=== PATIENT | female | born 1995 | race Caucasian/White ===

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

== ENCOUNTER 2017-05-07 16:25 | Outpatient (CLI) | payer BC, MEDICAID ==
--- NOTE | 2017-05-07 17:15 | Non Stress Test Report ---
Non Stress Test Datetime Report Generated by CPN: 05/07/2017 17:15 DEMOGRAPHIC Test Number: 1 EGA NST: 35.1 INDICATION Indication for Study: Ordered by Provider VITAL SIGNS Temperature - NST: 98.8 MONITORING Monitor Explained: Monitor Explained; Test Explained; Patient Verbalized Understanding Time on Monitor: 05/07/2017 16:37 Time off Monitor: 05/07/2017 17:12 NST Duration: 35 NST INTERVENTIONS NST Interventions: None Physician Notified NST: Lyles, CNM BABY A: [id number] BABY A Movement : Present Contraction Frequency : irregular FHR Baseline : 145 Accelerations : 15X15 Decelerations : None Variability : Moderate 6-25bpm NST Review: Meets Criteria for Reactive NST NST Review and Verified By : Shankar Barraza RN NST Results: Reactive NST REPORT Report Trigger: Send Report
[2017-05-07 17:31] LABS: ABSOLUTE EOSINOPHILS # (AUTO) 0.1 10^3/uL (0.0-0.6); ABSOLUTE LYMPHOCYTES (AUTO) 1.4 10^3/uL (0.5-4.7); ABSOLUTE MONOCYTES (AUTO) 1.2 10^3/uL (0.1-1.4); ABSOLUTE NEUT (AUTO) 10.4 10^3/uL (1.7-8.2); BASOPHILS % (AUTO) 0.3 % (0-2); EOSINOPHILS % (AUTO) 0.6 % (0-6); HEMATOCRIT 38.8 % (36.0-47.0); HEMOGLOBIN 12.9 g/dL (12.0-15.5); HGB HCT DIFFERENCE -0.1; LYMPHOCYTES % (AUTO) 10.3 % (13-45); MEAN CORPUSCULAR HEMOGLOBIN 27.3 pg (27.0-33.4); MEAN CORPUSCULAR HGB CONC 33.4 g/dL (32.0-36.0); MEAN CORPUSCULAR VOLUME 82 fl (80-97); MONOCYTES % (AUTO) 9.3 % (3-13); RED BLOOD COUNT 4.74 10^6/uL (3.72-5.28); RED CELL DISTRIBUTION WIDTH 13.5 % (11.5-14.0); SEGMENTED NEUTROPHILS % (AUTO) 79.5 % (42-78); WHITE BLOOD COUNT 13.1 10^3/uL (4.0-10.5)
[2017-05-07 17:45] LABS: AMORPHOUS SEDIMENT,URINE TRACE /HPF; APPEARANCE,URINE CLOUDY; BILIRUBIN,URINE NEGATIVE (NEGATIVE); GLUCOSE, URINE >=500 mg/dL (NEGATIVE); KETONES,URINE NEGATIVE (NEGATIVE); LEUKOCYTE ESTERASE,URINE MODERATE (NEGATIVE); NITRITE,URINE NEGATIVE (NEGATIVE); PROTEIN,URINE 100 mg/dL (NEGATIVE); URINE SPECIFIC GRAVITY 1.016; UROBILINOGEN,URINE NEGATIVE mg/dL (<2.0)
[2017-05-07 17:50] LABS: ALANINE AMINOTRANSFERASE 36 U/L (9-52); ALBUMIN 2.9 g/dL (3.5-5.0); ALKALINE PHOSPHATASE 175 U/L (38-126); ANION GAP 9 (5-19); ASPARTATE AMINO TRANSFERASE 18 U/L (14-36); BILIRUBIN,DIRECT 0.2 mg/dL (0.0-0.4); BILIRUBIN,TOTAL 0.3 mg/dL (0.2-1.3); BLOOD UREA NITROGEN 13 mg/dL (7-20); CALCIUM 9.1 mg/dL (8.4-10.2); CARBON DIOXIDE 22 mmol/L (22-30); CHLORIDE 106 mmol/L (98-107); GLUCOSE 103 mg/dL (75-110); LDH 430 U/L (313-618); POTASSIUM 4.3 mmol/L (3.6-5.0); TOTAL PROTEIN 5.8 g/dL (6.3-8.2); URIC ACID 4.5 mg/dL (2.5-6.2)
[2017-05-07 18:02] LABS: URINE BARBITURATES SCREEN NEGATIVE; URINE METHADONE SCREEN NEGATIVE; URINE OPIATES LOW NEGATIVE; URINE PHENCYCLIDINE SCREEN NEGATIVE
[2017-05-07 18:08] LABS: URINE CREATININE 134.4 mg/dL (16-327); URINE PROTEIN 78.2 mg/dL (<12)
== END 2017-05-07 18:09 | disposition home or self-care (01) ==
LOC: LC 16:25
PROVIDERS: ATTEND Obstetrics & Gynecology
PROC: 4A1HXCZ Monitoring of Products of Conception, Cardiac Rate, External Approach (ICD-10-PCS; principal; 2017-05-07)
DX: O47.03 False labor before 37 completed weeks of gestation, third trimester (principal); Z3A.35 35 weeks gestation of pregnancy
CPT/HCPCS: 36415; 59025; 80053; 80307; 81001; 82570; 83615; 84156; 84550; 85025

== ENCOUNTER 2017-05-10 15:35 | Outpatient (CLI) | payer BC, MEDICAID ==
--- NOTE | 2017-05-10 16:51 | L&D Progress Notes ---
PROGRESS NOTES Datetime Report Generated by CPN: 05/10/2017 16:51 PROGRESS NOTE Vital Signs : Reviewed Comment: 22 yo sent from office for elevated bps pt denies any current symptoms history of hsv, gdm on glyburide 5mg po AM and 2.5 mg po qhs EDC 06/10/17 abdomen nontender modified bedrest cat 1 nst vss d/c home follow up in clinic on sunday fkc and precautions reviewed FETUS A FHR - Baseline: 130 Monitoring: External US Variability: Moderate 6-25bpm Accelerations: 15X15 Decelerations: None : 35.4 SIGNATURE SIGNATURE: [id number];[id number] SIGNATURE: [id number] Assignment: Jaspreet Carvalho MD Signature: with User ID: [email or web address] : with User ID: [email or web address]
--- NOTE | 2017-05-10 17:03 | Non Stress Test Report ---
Non Stress Test Datetime Report Generated by CPN: 05/10/2017 17:03 DEMOGRAPHIC EGA NST: 35.4 INDICATION Indication for Study: Chronic Hypertension Indication for Study (NST) Other: hypertension and non reactive NST in office today MONITORING Monitor Explained: Monitor Explained; Test Explained; Patient Verbalized Understanding Time on Monitor: 05/10/2017 15:35 Time off Monitor: 05/10/2017 16:37 NST Duration: 62 NST INTERVENTIONS NST Interventions: Reposition Patient NST Interventions Other: position changed Physician Notified NST: Ailsia Emmel CNM BABY A: [id number] BABY A Movement : Present Contraction Frequency : 4-5 FHR Baseline : 135 Accelerations : 15X15 Decelerations : None Variability : Moderate 6-25bpm NST Review: Meets Criteria for Reactive NST NST Review and Verified By : Agnes Hawley RN NST Results: Reactive NST REPORT Report Trigger: Send Report
== END 2017-05-10 16:44 | disposition home or self-care (01) ==
LOC: LC 15:35
PROVIDERS: ATTEND Obstetrics & Gynecology Gynecology
PROC: 4A1HXCZ Monitoring of Products of Conception, Cardiac Rate, External Approach (ICD-10-PCS; principal; 2017-05-10)
DX: O10.913 Unspecified pre-existing hypertension complicating pregnancy, third trimester (principal); Z3A.35 35 weeks gestation of pregnancy
CPT/HCPCS: 59025

== ENCOUNTER 2017-05-14 16:25 | Outpatient (CLI) | payer BC, MEDICAID ==
[2017-05-14 17:02] LABS: ABSOLUTE BASOPHILS # (AUTO) 0.1 10^3/uL (0.0-0.2); ABSOLUTE LYMPHOCYTES (AUTO) 2.3 10^3/uL (0.5-4.7); ABSOLUTE MONOCYTES (AUTO) 1.3 10^3/uL (0.1-1.4); ABSOLUTE NEUT (AUTO) 10.3 10^3/uL (1.7-8.2); EOSINOPHILS % (AUTO) 0.3 % (0-6); HEMATOCRIT 38.8 % (36.0-47.0); HEMOGLOBIN 13.3 g/dL (12.0-15.5); HGB HCT DIFFERENCE 1.1; LYMPHOCYTES % (AUTO) 16.2 % (13-45); MEAN CORPUSCULAR HEMOGLOBIN 27.8 pg (27.0-33.4); MEAN CORPUSCULAR HGB CONC 34.4 g/dL (32.0-36.0); MEAN CORPUSCULAR VOLUME 81 fl (80-97); MONOCYTES % (AUTO) 9.3 % (3-13); RED BLOOD COUNT 4.79 10^6/uL (3.72-5.28); RED CELL DISTRIBUTION WIDTH 14.1 % (11.5-14.0); SEGMENTED NEUTROPHILS % (AUTO) 73.2 % (42-78); WHITE BLOOD COUNT 14.1 10^3/uL (4.0-10.5)
[2017-05-14 17:11] LABS: APPEARANCE,URINE CLOUDY; BILIRUBIN,URINE NEGATIVE (NEGATIVE); GLUCOSE, URINE >=500 mg/dL (NEGATIVE); KETONES,URINE NEGATIVE (NEGATIVE); LEUKOCYTE ESTERASE,URINE TRACE (NEGATIVE); NITRITE,URINE NEGATIVE (NEGATIVE); PROTEIN,URINE >=500 mg/dL (NEGATIVE); URINE SPECIFIC GRAVITY 1.035; UROBILINOGEN,URINE NEGATIVE mg/dL (<2.0)
[2017-05-14 17:23] LABS: ALANINE AMINOTRANSFERASE 35 U/L (9-52); ALBUMIN 3.1 g/dL (3.5-5.0); ALKALINE PHOSPHATASE 186 U/L (38-126); ANION GAP 10 (5-19); ASPARTATE AMINO TRANSFERASE 24 U/L (14-36); BILIRUBIN,DIRECT 0.2 mg/dL (0.0-0.4); BILIRUBIN,TOTAL 0.2 mg/dL (0.2-1.3); BLOOD UREA NITROGEN 14 mg/dL (7-20); CALCIUM 9.2 mg/dL (8.4-10.2); CARBON DIOXIDE 20 mmol/L (22-30); CHLORIDE 109 mmol/L (98-107); CREATININE RESULT 0.84 mg/dL (0.52-1.25); GLUCOSE 53 mg/dL (75-110); LDH 495 U/L (313-618); POTASSIUM 4.1 mmol/L (3.6-5.0); TOTAL PROTEIN 6.2 g/dL (6.3-8.2); URIC ACID 5.3 mg/dL (2.5-6.2)
--- NOTE | 2017-05-14 17:25 | Non Stress Test Report ---
Non Stress Test Datetime Report Generated by CPN: 05/14/2017 17:24 DEMOGRAPHIC EGA NST: 36.1 INDICATION Indication for Study: Gestational Hypertension; Diabetes Mellitus; Ordered by Provider MONITORING Monitor Explained: Monitor Explained; Test Explained; Patient Verbalized Understanding Time on Monitor: 05/14/2017 16:47 Time off Monitor: 05/14/2017 17:13 NST Duration: 26 NST INTERVENTIONS NST Interventions: PO Hydration; Reposition Patient Physician Notified NST: J Lynn CNM BABY A: [id number] BABY A Movement : Present Contraction Frequency : x0 FHR Baseline : 135 Accelerations : 15X15 Decelerations : None Variability : Moderate 6-25bpm NST Review: Meets Criteria for Reactive NST NST Review and Verified By : Agnes Hawley RNC NST Results: Reactive NST REPORT Report Trigger: Send Report
[2017-05-14 17:26] LABS: URINE BARBITURATES SCREEN NEGATIVE; URINE METHADONE SCREEN NEGATIVE; URINE OPIATES LOW NEGATIVE; URINE PHENCYCLIDINE SCREEN NEGATIVE
[2017-05-14 17:30] LABS: URINE CREATININE 281.8 mg/dL (16-327)
[2017-05-17 15:49] LABS: URINE PROTEIN 456.4 mg/dL (<12)
== END 2017-05-14 18:40 | disposition home or self-care (01) ==
LOC: LC 16:25
PROVIDERS: ATTEND Obstetrics & Gynecology
PROC: 4A1HXCZ Monitoring of Products of Conception, Cardiac Rate, External Approach (ICD-10-PCS; principal; 2017-05-14)
DX: O13.3 Gestational [pregnancy-induced] hypertension without significant proteinuria, third trimester (principal); O24.913 Unspecified diabetes mellitus in pregnancy, third trimester; Z3A.36 36 weeks gestation of pregnancy
CPT/HCPCS: 36415; 59025; 80053; 80307; 81001; 82570; 83615; 84156; 84550; 85025

== ENCOUNTER 2017-05-17 15:14 | Inpatient (IN) | payer BC, MEDICAID ==
[2017-05-17 16:00] LABS: URINE BARBITURATES SCREEN NEGATIVE; URINE METHADONE SCREEN NEGATIVE; URINE OPIATES LOW NEGATIVE; URINE PHENCYCLIDINE SCREEN NEGATIVE
[2017-05-17] MEDS ORDERED: DINOPROSTONE 10 MG VAGINAL INSERT.SR PV PRN (16:03)
[2017-05-17] MEDS ORDERED: OXYTOCIN/NORMAL SALINE 20 UNIT/1,000 ML RTUINJ IV PRN (16:03)
[2017-05-17] MEDS ORDERED: RINGERS SOLUTION,LACTATED 300 ML IV ONE (16:03)
[2017-05-17 16:18] LABS: ABSOLUTE BASOPHILS # (AUTO) 0.1 10^3/uL (0.0-0.2); ABSOLUTE EOSINOPHILS # (AUTO) 0.1 10^3/uL (0.0-0.6); ABSOLUTE LYMPHOCYTES (AUTO) 1.4 10^3/uL (0.5-4.7); ABSOLUTE MONOCYTES (AUTO) 1.1 10^3/uL (0.1-1.4); BASOPHILS % (AUTO) 0.9 % (0-2); EOSINOPHILS % (AUTO) 0.6 % (0-6); HEMATOCRIT 39.5 % (36.0-47.0); HEMOGLOBIN 13.1 g/dL (12.0-15.5); HGB HCT DIFFERENCE -0.2; LYMPHOCYTES % (AUTO) 10.7 % (13-45); MEAN CORPUSCULAR HEMOGLOBIN 27.4 pg (27.0-33.4); MEAN CORPUSCULAR HGB CONC 33.3 g/dL (32.0-36.0); MEAN CORPUSCULAR VOLUME 82 fl (80-97); MONOCYTES % (AUTO) 8.6 % (3-13); SEGMENTED NEUTROPHILS % (AUTO) 79.2 % (42-78); WHITE BLOOD COUNT 12.6 10^3/uL (4.0-10.5)
[2017-05-17 16:40] LABS: ALANINE AMINOTRANSFERASE 30 U/L (9-52); ALKALINE PHOSPHATASE 175 U/L (38-126); ANION GAP 8 (5-19); ASPARTATE AMINO TRANSFERASE 25 U/L (14-36); BILIRUBIN,DIRECT 0.1 mg/dL (0.0-0.4); BILIRUBIN,TOTAL 0.1 mg/dL (0.2-1.3); BLOOD UREA NITROGEN 14 mg/dL (7-20); CALCIUM 9.6 mg/dL (8.4-10.2); CARBON DIOXIDE 24 mmol/L (22-30); CHLORIDE 106 mmol/L (98-107); CREATININE RESULT 0.79 mg/dL (0.52-1.25); GLUCOSE 56 mg/dL (75-110); LDH 461 U/L (313-618); POTASSIUM 4.1 mmol/L (3.6-5.0); SODIUM 138.3 mmol/L (137-145); TOTAL PROTEIN 5.9 g/dL (6.3-8.2); URIC ACID 5.5 mg/dL (2.5-6.2)
[2017-05-17] MEDS: RINGERS SOLUTION,LACTATED 1,000 ML IV PRN ×2 (17:38→23:37)
[2017-05-17] MEDS ORDERED: MAGNESIUM SULFATE 4 GM/100 ML RTUPB IV ONE ×2 (17:52→18:45)
[2017-05-17] MEDS ORDERED: DINOPROSTONE 10 MG VAGINAL INSERT.SR ONE (18:46)
[2017-05-17] MEDS: MAGNESIUM SULFATE 20 GM/500 ML RTUINJ IV PRN (20:36)
[2017-05-17] MEDS ORDERED: HYDRALAZINE HCL INJ/PF 20 MG/1 ML SDV IV ONE (21:35)
[2017-05-17] MEDS ORDERED: HYDRALAZINE HCL INJ/PF 20 MG/1 ML SDV ONE (21:39)
[2017-05-17] MEDS ORDERED: ACETAMINOPHEN 325 MG TABLET PO ONE (22:19)
[2017-05-17] MEDS ORDERED: ACETAMINOPHEN 325 MG TABLET ONE (22:27)
[2017-05-18] MEDS ORDERED: HYDRALAZINE HCL INJ/PF 20 MG/1 ML SDV IV ONE ×4 (00:08→07:24)
[2017-05-18] MEDS ORDERED: NALBUPHINE HCL INJ 10 MG/1 ML AMPULE IV ONE (03:15)
[2017-05-18] MEDS ORDERED: NALBUPHINE HCL INJ 10 MG/1 ML AMPULE ONE (03:19)
[2017-05-18] MEDS ORDERED: FUROSEMIDE INJ/PF 20 MG/2 ML SDV IV ONE (05:33)
[2017-05-18] MEDS: RINGERS SOLUTION,LACTATED 1,000 ML IV PRN (05:37)
[2017-05-18] MEDS ORDERED: FUROSEMIDE INJ/PF 40 MG/4 ML SDV ONE (05:49)
--- NOTE | 2017-05-18 06:05 | L&D Progress Notes ---
PROGRESS NOTES Datetime Report Generated by [facility]: 05/18/2017 06:04 PROGRESS NOTE Impression: Eclampsia - Mild Procedures- Other: Bolus, Lasix Plan: Induction Informed Consent Obtained: Vaginal Delivery; Risks, Benefits and Alternatives Discussed Vital Signs : Reviewed Vital Signs Comments: Mild range, severe range resolved with leaving the roon Comment: Called by RN due to UOPdecreasing. Labs were ok at admission and creatinine was 0.7. Patient noted to have edema at admission - and difficulty to obtain IV. At admission chart review noted 20#weight gain in short interval - concern this was fluid. 24 hr UTP greater than 5000. REview of records appears to be CHTN with superimposed PreE. Cervidil placed at 2000 last pm and patient having irregular ctx. Pt given Hydralazine 5mg then awhile later needed 10mg hydralazine. UOP was 20ml last hour after 250ml bolus. The hour before was 30ml and then hour before that was 40ml and prior to that was 75ml (in 100s prior to that each hour). Will time labs for earlier and include coags. Attempt to resolve with catheter manipulation unsuccessful. Will try lasix and 500ml bolus. If this does not resolve UOP and it continues to fall she will likely needs section for delivery due to worsening Superimposed PreE. VAGINAL EXAM Dilatation: ft Effacement: th Station: -3 MEMBRANES Membranes: Intact FETUS A FHR - Baseline: 120 Monitoring: External US Variability: Moderate 6-25bpm Accelerations: 15X15 Decelerations: None FHR Category: Category I SIGNATURE SIGNATURE: [id number];[id number] SIGNATURE: [id number];[id number] SIGNATURE: [id number];10,[id number] Signature: with User ID: [email or web address]
[2017-05-18 06:18] LABS: ABSOLUTE BASOPHILS # (AUTO) 0.1 10^3/uL (0.0-0.2); ABSOLUTE LYMPHOCYTES (AUTO) 0.9 10^3/uL (0.5-4.7); ABSOLUTE MONOCYTES (AUTO) 0.7 10^3/uL (0.1-1.4); ABSOLUTE NEUT (AUTO) 14.8 10^3/uL (1.7-8.2); BASOPHILS % (AUTO) 0.3 % (0-2); EOSINOPHILS % (AUTO) 0.1 % (0-6); HEMOGLOBIN 13.7 g/dL (12.0-15.5); HGB HCT DIFFERENCE 1.1; LYMPHOCYTES % (AUTO) 5.2 % (13-45); MEAN CORPUSCULAR HEMOGLOBIN 27.7 pg (27.0-33.4); MEAN CORPUSCULAR HGB CONC 34.3 g/dL (32.0-36.0); MEAN CORPUSCULAR VOLUME 81 fl (80-97); MONOCYTES % (AUTO) 4.5 % (3-13); RED BLOOD COUNT 4.95 10^6/uL (3.72-5.28); RED CELL DISTRIBUTION WIDTH 14.5 % (11.5-14.0); SEGMENTED NEUTROPHILS % (AUTO) 89.9 % (42-78); WHITE BLOOD COUNT 16.4 10^3/uL (4.0-10.5)
[2017-05-18 06:26] LABS: PROTHROMBIN TIME 12.4 SEC (11.4-15.4)
[2017-05-18 06:27] LABS: PARTIAL THROMBOPLASTIN TIME 27.1 SEC (23.5-35.8)
[2017-05-18 06:33] LABS: ALANINE AMINOTRANSFERASE 34 U/L (9-52); ALBUMIN 3.1 g/dL (3.5-5.0); ALKALINE PHOSPHATASE 217 U/L (38-126); ANION GAP 12 (5-19); ASPARTATE AMINO TRANSFERASE 24 U/L (14-36); BILIRUBIN,DIRECT 0.1 mg/dL (0.0-0.4); BILIRUBIN,TOTAL 0.3 mg/dL (0.2-1.3); BLOOD UREA NITROGEN 13 mg/dL (7-20); CALCIUM 8.8 mg/dL (8.4-10.2); CARBON DIOXIDE 18 mmol/L (22-30); CHLORIDE 105 mmol/L (98-107); CREATININE RESULT 0.77 mg/dL (0.52-1.25); GLUCOSE 84 mg/dL (75-110); LDH 454 U/L (313-618); POTASSIUM 4.2 mmol/L (3.6-5.0); SODIUM 134.5 mmol/L (137-145); URIC ACID 5.6 mg/dL (2.5-6.2)
[2017-05-18] MEDS ORDERED: HYDRALAZINE HCL INJ/PF 20 MG/1 ML SDV ONE ×2 (06:54→07:16)
[2017-05-18] MEDS ORDERED: ONDANSETRON HCL INJ/PF 4 MG/2 ML SDV ONE ×3 (06:54→09:15)
[2017-05-18] MEDS ORDERED: ONDANSETRON HCL INJ/PF 4 MG/2 ML SDV IV ONE (07:02)
[2017-05-18] MEDS ORDERED: ONDANSETRON HCL INJ/PF 4 MG/2 ML SDV IV PRN (07:02)
--- NOTE | 2017-05-18 07:32 | L&D Progress Notes ---
PROGRESS NOTES Datetime Report Generated by CPN: 05/18/2017 07:31 PROGRESS NOTE Impression Other: cont with IOL Procedures- Other: Elev BPs, Superimposed PreE Plan: Induction; Cervical Ripening Informed Consent Obtained: Vaginal Delivery; Section Delivery; Risks, Benefits and Alternatives Discussed Vital Signs : Reviewed; Within Normal Limits Comment: After 500ml IVF bolus and 20mg IV lasix patient with improved UOP to 350ml in hour. Labs stable. BPs now increasing again - Hydralazine 10mg given BP still elevated - Hydralazine 20mg IV given. Reactive and CAT I NST. Cervidil due out at 0800. Plan to continue to reasses. Ok to proceed with IOL and cervidil ripening for now. If labs worsen or PreE worsens or UOP decreases may need to proceed with section - will make sure contact and service clerks supervisor MD aware. VAGINAL EXAM Dilatation: ft Effacement: th Station: -3 Contractions: q 1-4 FETUS A FHR - Baseline: 125 Monitoring: External US Variability: Moderate 6-25bpm Accelerations: 15X15 Decelerations: None FHR Category: Category I FETUS C SIGNATURE: [id number];[id number] Signature: with User ID: [email or web address]
[2017-05-18] MEDS ORDERED: EPHEDRINE SULFATE INJ 50 MG/1 ML AMPULE ONE ×2 (08:12→09:16)
[2017-05-18] MEDS ORDERED: CEFAZOLIN 2 GM/D5W RTU 2 GM/50 ML RTUPB IV ONE (08:46)
[2017-05-18] MEDS ORDERED: CITRIC ACID/SODIUM CITRATE ORAL SOLN 15 ML UDCUP ONE (08:46)
[2017-05-18] MEDS ORDERED: OXYTOCIN 10 UNIT/ML VIAL ONE (09:15)
--- NOTE | 2017-05-18 09:15 | L&D Progress Notes ---
PROGRESS NOTES Datetime Report Generated by CPN: 05/18/2017 09:15 PROGRESS NOTE Impression Other: severe preeclampsia Plan: Deliver- Section Informed Consent Obtained: Section Delivery Comment: The pt has severe preeclampsia with oliguria. She and her partner request a C section. I agree because she is remote from vaginal delivery and is becoming ill from the preeclampsia. VAGINAL EXAM Dilatation: 2 FETUS A FHR - Baseline: 150 Variability: Minimal - Undetectable to <=5bpm Accelerations: Absent Decelerations: None FHR Category: Category II FETUS C SIGNATURE: [id number];[id number] Signature: with User ID: [email or web address]
[2017-05-18] MEDS ORDERED: MIDAZOLAM 2 MG/2 ML INJ ONE (09:16)
[2017-05-18] MEDS ORDERED: FENTANYL CITRATE INJ/PF 100 MCG/2 ML AMPUL ONE (09:16)
[2017-05-18] MEDS ORDERED: FENTANYL CITRATE INJ/PF 100 MCG/2 ML AMPUL IV PRN ×3 (10:13)
[2017-05-18] MEDS ORDERED: OXYCODONE-ACETAMINOPHEN 5-325 MG TABLET PO PRN ×4 (10:13→11:30)
[2017-05-18] MEDS ORDERED: MORPHINE SULFATE 10 MG/ML INJ IV PRN (10:13)
[2017-05-18] MEDS ORDERED: PROMETHAZINE HCL INJ 25 MG/1 ML VIAL IV PRN ×2 (10:13)
[2017-05-18] MEDS ORDERED: DIPHENHYDRAMINE HCL 50 MG/ML VIAL IV PRN (10:13)
[2017-05-18] MEDS ORDERED: MEPERIDINE HCL/PF INJ 25 MG/1 ML DISP.SYRIN IV PRN (10:13)
--- NOTE | 2017-05-18 10:16 | Warning Signs in Babies ---
VOD Warning Signs Datetime Report Generated by [facility]: 05/18/2017 10:15 VOD#608 -Warning Signs in Babies: Needs to be viewed. (05/07/2017 16:33:Narda Valdes RN)
[2017-05-18] MEDS ORDERED: PHENYLEPHRINE HCL INJ/PF 10 MG/1 ML SDV ONE (10:29)
--- NOTE | 2017-05-18 10:34 | Operative Report ---
Operative Report DATE OF SURGERY: 05/18/17 PREOPERATIVE DIAGNOSIS: Severe preeclampsia remote from delivery POSTOPERATIVE DIAGNOSIS: Same OPERATION: Primary via low transverse uterine incision SURGEON: SUE GOMEZ ANESTHESIA: Spinal TISSUE REMOVED OR ALTERED: Placenta COMPLICATIONS: None ESTIMATED BLOOD LOSS: 250 cc INTRAOPERATIVE FINDINGS: Viable female Apgars 8 9. Normal uterus tubes and ovaries PROCEDURE: Patient was taken to the OR and placed in supine position after her spinal anesthesia. She is prepared and draped in sterile fashion. Munoz was placed for drainage of the bladder. Low transverse incision was made and carried down the level of the fascia. The fascial incision was made with knife and extended bilaterally with curved Jalloh scissors. The fascia was off the rectus muscles using sharp and blunt dissection. The rectus muscles are in the midline. The peritoneum was entered without incident. Bladder blade was placed in uterine segment was identified. A low transverse incision was made creating a bladder flap. Bladder blade was placed low transverse uterine incision was made with the csafe knife and extended with fingertips. The baby was delivered with some fundal pressure. Mouth and nose were suctioned free. The cord is doubly clamped and cut. Baby is passed off to the assembler installer structures in attendance. The placenta was manually extracted with trailing membranes. The uterus was externalized wrapped in a moist lap sponge. Uterine contents wiped free. Uterus was closed with a running locking layer of 0 chromic suture using the second layer to imbricate the first completing a double layer closure of the uterus. The serosa was closed with a running 2-0 chromic stitch. The pelvis was irrigated and suctioned free of fluid the uterus was replaced in the abdomen. The abdominal wall peritoneum was closed with running 2-0 chromic stitch. Fascia was closed with a running 0 Vicryl in 2 segments. Anup's layer was brought together with 0 plain gut stitch and the skin was closed with running subcuticular 4-0 undyed Vicryl stitch. The wound was dressed mother and baby did well.
[2017-05-18] MEDS ORDERED: OXYTOCIN/NORMAL SALINE 20 UNIT/1,000 ML RTUINJ ONE (10:57)
[2017-05-18] MEDS ORDERED: OXYTOCIN/NORMAL SALINE 20 UNIT/1,000 ML RTUINJ IV PRN (11:23)
[2017-05-18] MEDS ORDERED: MEASLES,MUMPS&RUBELLA VACC/PF 0.5 ML VIAL SUBCUT PRN (11:30)
[2017-05-18] MEDS ORDERED: PROMETHAZINE HCL INJ 25 MG/1 ML VIAL IM PRN (11:30)
[2017-05-18] MEDS ORDERED: DIPH/PERTUSS(ACELL)/TETANUS VAC/PF 0.5 ML SYR (>=10YO) IM PRN (11:30)
[2017-05-18] MEDS ORDERED: SIMETHICONE 80 MG TAB.CHEW PO PRN (11:30)
[2017-05-18] MEDS ORDERED: RINGERS SOLUTION,LACTATED 1,000 ML IV SCH (11:30)
[2017-05-18] MEDS ORDERED: HYDROMORPHONE HCL INJ/PF 2 MG/ML AMPULE IV PRN (11:30)
[2017-05-18] MEDS ORDERED: ACETAMINOPHEN 325 MG TABLET PO PRN (11:30)
[2017-05-18] MEDS ORDERED: MAGNESIUM SULFATE 1 GM/D5W 100 ML IV SCH (11:30)
[2017-05-18] MEDS ORDERED: HYDROMORPHONE HCL INJ/PF 2 MG/ML AMPULE ONE (11:45)
[2017-05-18] MEDS ORDERED: IBUPROFEN 800 MG TABLET ONE ×2 (13:35→19:42)
[2017-05-18] MEDS: IBUPROFEN 800 MG TABLET PO SCH ×2 (13:37→19:47)
--- NOTE | 2017-05-18 13:52 | Delivery Summary ---
Del Sum A-C Datetime Report Generated by CPN: 05/18/2017 13:52 DELIVERY PERSONNEL DELIVERY PERSONNEL: [id number] Delivery Doctor:: Jose D Dos Santos MD Anesthesiologist:: Steve Nj MD PERFORMANCE MAKEUP ARTIST:: Candi Good CRNA Labor and Delivery Nurse:: Narda Valdes RNprinting plate clerk Nurse:: Dayana Chavez RN Gift Officer:: Narda Valdes RN Nursery Nurse:: Khurram Houston RN General Service Officer/SLIVER FORMER: [facility] General Service Officer/SLIVER FORMER: Tori Davies ST Additional Personnel: : Dr. Lincoln MATERNAL INFORMATION Delivery Anesthesia: Spinal Medications After Delivery: Pitocin Drip 20 Units/1000ml NSS Meds After Delivery Comment: Pitocin 20 units in 1 L NS per order Estimated Blood Loss (ml): 600 Maternal Complications: Other Other Maternal Complications: Severe Pre-Eclampsia LABOR SUMMARY EDC: 06/10/2017 00:00 No. Babies in Womb: 1 Attempted: No Labor Anesthesia: IV Sedation LABOR INFORMATION Reason for Induction: Pre-Eclampsia Cervical Ripening Agents: Cervidil Oxytocin: N/A Group B Beta Strep: Negatvie Antibiotics # of Doses: 1 Antibiotics Time of Last Dose: 905 Name of Antibiotic Given: Ancef Steroids Given: None Reason Steroids Not Administered: Not Applicable MEMBRANES Membranes Rupture Method: Artificial Rupture of Membranes: 05/18/2017 09:49 Length of Rupture (hr): 0.02 Amniotic Fluid Color: Clear Amniotic Fluid Amount: Moderate Amniotic Fluid Odor: Normal STAGES OF LABOR Stage 3 hr: 0 Stage 3 min: 1 VAGINAL DELIVERY Episiotomy: None Laceration #1: None Laceration Extension #1: N/A Laceration Repair: Not Applicable Sponge Count Correct: N/A Sharps Count Correct: N/A CSECTION DELIVERY Primary Indication: Nonreassuring Status Secondary Indication: Other Other Secondary Indication: Severe Pre-eclampsia CSection Urgency: Non-Scheduled CSection Incidence: Primary Labor: Labor Elective: Nonelective CSection Incision: Lower Uterine Transverse BABY A INFORMATION Delivery Date/Time: 05/18/2017 09:50 Method of Delivery: Born in Route : No : N/A Forceps: N/A Vacuum Extraction: N/A Shoulder Dystocia : No PRESENTATION/POSITION BABY A Presentation: Cephalic Cephalic Presentation: Vertex Vertex Position: Left Occipital Anterior Breech Presentation: N/A PLACENTA INFORMATION BABY A Placenta Delivery Time : 05/18/2017 09:51 Placenta Method of Delivery: Manual Removal Placenta Status: Delivered SCORES BABY A Heart Rate 1 min: >100 bpm Resp Effort 1 min: Good Cry Reflex Irritability 1 min: Cough or Sneeze or Pulls Away Muscle Tone 1 min: Active Motion Color 1 min: Blue/Pale SCORE 1 MIN: 8 Heart Rate 5 min: >100 bpm Resp Effort 5 min: Good Cry Reflex Irritability 5 min: Cough or Sneeze or Pulls Away Muscle Tone 5 min: Active Motion Color 5 min: Body [place], Extremities Blue SCORE 5 MIN: 9 INFANT INFORMATION BABY A Gestational Age at Delivery: 36.5 Gestational Status: Late - 34- 36.6 Weeks Outcome : Liveborn Condition : Stable Infant Sex: Female IDENTIFICATION BABY A Verification Date/Time: 05/18/2017 13:50 ID Band Number: [id number] Mother's Name Verified: Yes RN Verifying Infant: BL Roulund, RN Additional Verifying Personnel: C. Sarah, RN WEIGHT/LENGTH BABY A Infant Birthweight (gm): 3640 Infant Weight (lb): 8 Weight (oz): 0 Infant Length (in): 20.75 Length (cm): 52.71 CORD INFORMATION BABY A No. Cord Vessels: 3 Nuchal Cord : Around Neck x1, Loose True Knot: 0 Cord Blood Taken: Yes-For Storage (Mom's Blood type +) Suction: Mouth; Nose ASSESSMENT BABY A Infant Complications: Decreased Variability; Multiple Late Decels Skin to Skin: No Skin to Skin Time (min): 0 BABY B INFORMATION : N/A SIGNATURES : I personally evaluated and examined the patient in conjunction with the P and agree with the assessment, treatment plan and disposition.
[2017-05-18] MEDS ORDERED: DOCUSATE SODIUM 100 MG CAPSULE PO SCH (18:00)
[2017-05-18 18:01] LABS: HEMATOCRIT 38.3 % (36.0-47.0); HEMOGLOBIN 12.7 g/dL (12.0-15.5); HGB HCT DIFFERENCE -0.2; MEAN CORPUSCULAR HEMOGLOBIN 27.2 pg (27.0-33.4); MEAN CORPUSCULAR HGB CONC 33.2 g/dL (32.0-36.0); MEAN CORPUSCULAR VOLUME 82 fl (80-97); RED BLOOD COUNT 4.68 10^6/uL (3.72-5.28); RED CELL DISTRIBUTION WIDTH 14.3 % (11.5-14.0)
[2017-05-18 18:18] LABS: ALANINE AMINOTRANSFERASE 26 U/L (9-52); ALBUMIN 2.8 g/dL (3.5-5.0); ALKALINE PHOSPHATASE 193 U/L (38-126); ANION GAP 11 (5-19); ASPARTATE AMINO TRANSFERASE 30 U/L (14-36); BILIRUBIN,DIRECT 0.2 mg/dL (0.0-0.4); BILIRUBIN,TOTAL 0.3 mg/dL (0.2-1.3); BLOOD UREA NITROGEN 14 mg/dL (7-20); CALCIUM 8.3 mg/dL (8.4-10.2); CARBON DIOXIDE 21 mmol/L (22-30); CHLORIDE 102 mmol/L (98-107); CREATININE RESULT 0.87 mg/dL (0.52-1.25); GLUCOSE 116 mg/dL (75-110); LDH 691 U/L (313-618); POTASSIUM 4.4 mmol/L (3.6-5.0); SODIUM 133.7 mmol/L (137-145); TOTAL PROTEIN 5.3 g/dL (6.3-8.2); URIC ACID 6.3 mg/dL (2.5-6.2)
[2017-05-18] MEDS ORDERED: LABETALOL HCL 200 MG TABLET ONE (18:32)
[2017-05-18] MEDS ORDERED: LABETALOL HCL 200 MG TABLET PO ONE (18:45)
[2017-05-18] MEDS: MAGNESIUM SULFATE 20 GM/500 ML RTUINJ IV PRN (20:45)
[2017-05-19] MEDS ORDERED: IBUPROFEN 800 MG TABLET ONE ×2 (03:33→06:33)
[2017-05-19] MEDS: IBUPROFEN 800 MG TABLET PO SCH ×4 (03:38→18:30)
[2017-05-19] MEDS ORDERED: DOCUSATE SODIUM 100 MG CAPSULE ONE (04:06)
[2017-05-19] MEDS ORDERED: HYDROMORPHONE HCL INJ/PF 2 MG/ML AMPULE ONE (04:07)
[2017-05-19] MEDS ORDERED: LABETALOL HCL 200 MG TABLET ONE (06:35)
--- NOTE | 2017-05-19 07:15 | PDOC PROGRESS REPORT ---
Subjective-OB Subjective: Post Delivery Day: 22 year old. Denies any needs at this time She will be taken off the magnesium this morning and move to the floor. On exam she is alert oriented and appropriate. dressing is dry extremities are non tender POD 1 stop mag, begin floor orders. Physical Exam (OB) Vital Signs: Intake & Output 05/18/17 05/19/17 05/20/17 06:59 06:59 06:59 Weight 108.45 kg Objective-Diagnostic Laboratory: 05/18/17 17:23 05/18/17 17:23 05/18/17 05/18/17 05/18/17 17:23 17:23 17:23 WBC 23.0 H RBC 4.68 Hgb 12.7 Hct 38.3 MCV 82 MCH 27.2 MCHC 33.2 RDW 14.3 H Plt Count 166 Sodium 133.7 L Potassium 4.4 Chloride 102 Carbon Dioxide 21 L Anion Gap 11 BUN 14 Creatinine 0.87 Est GFR ( Amer) > 60 Est GFR (Non-Af Amer) > 60 Glucose 116 H Uric Acid 6.3 H Calcium 8.3 L Magnesium 6.4 H* Total Bilirubin 0.3 AST 30 ALT 26 Alkaline Phosphatase 193 H Total Protein 5.3 L Albumin 2.8 L
[2017-05-19] MEDS ORDERED: RINGERS SOLUTION,LACTATED 1,000 ML IV PRN (07:16)
[2017-05-19] MEDS ORDERED: MEASLES,MUMPS&RUBELLA VACC/PF 0.5 ML VIAL SUBCUT PRN (07:16)
[2017-05-19] MEDS ORDERED: SIMETHICONE 80 MG TAB.CHEW PO PRN (07:16)
[2017-05-19] MEDS ORDERED: OXYTOCIN/NORMAL SALINE 20 UNIT/1,000 ML RTUINJ IV PRN (07:16)
[2017-05-19] MEDS ORDERED: ACETAMINOPHEN 325 MG TABLET PO PRN (07:16)
[2017-05-19] MEDS ORDERED: PROMETHAZINE HCL INJ 25 MG/1 ML VIAL IV PRN (07:16)
[2017-05-19] MEDS ORDERED: OXYCODONE-ACETAMINOPHEN 5-325 MG TABLET PO PRN ×2 (07:16)
[2017-05-19] MEDS ORDERED: DIPH/PERTUSS(ACELL)/TETANUS VAC/PF 0.5 ML SYR (>=10YO) IM PRN (07:16)
[2017-05-19] MEDS: MAGNESIUM SULFATE 20 GM/500 ML RTUINJ IV PRN (07:19)
[2017-05-19] MEDS ORDERED: ONDANSETRON 4 MG TAB.RAPDIS ONE (08:18)
[2017-05-19] MEDS ORDERED: OXYCODONE-ACETAMINOPHEN 5-325 MG TABLET ONE (08:36)
--- NOTE | 2017-05-19 08:54 | Admission Physical ---
Datetime Report Generated by CPN: 05/19/2017 08:54 CURRENT ADMISSION Chief Complaint: Signs/Symptoms Gestational HTN Indication for Induction: PreEclampsia Indication for Induction: Term, Intrauterine ; Induction of Labor Admit Impression- Other: 24 hr urine protein today Admit Plan: Admit to Unit; Initiate Labor Induction Protocol ALLERGIES Medication Allergies: No Medication Allergies: No Known Allergies (05/14/2017) Medication Allergies: No Known Allergies (05/10/2017) Medication Allergies: No Known Allergies (03/22/2015) Latex: No Latex Allergies OBSTETRICAL HISTORY EDC: 06/10/2017 00:00 : 1 Para: 0 Term: 0 : 0 SAB: 0 IAB: 0 Ectopic: 0 Livin Cesareans: 0 VBACs: 0 Multiple Births: 0 Gestational Diabetes: Yes Rh Sensitization: No Incompetent Cervix: No JOANNE: No Infertility: No ART Treatment: No Uterine Anomaly: No IUGR: No Hx Previous C/S: No Macrosomia: No Hx Loss/Stillborn: No PIH: No Hx : No Placenta Previa/Abruption: No Depression/PP Depression: No PTL/PROM: No Post Hemorrhage: No Current Procedures: Ultrasound; NST Obstetrical History Comments: G1 current , GDM on glyburide SEE RECORDS Alcohol: No Marijuana : No Cocaine: No Other Illicit Drugs: No Cigarettes: Never Smoker. [id number] MEDICAL HISTORY Diabetes: Yes Diabetes Type: Gestational Diabetes Blood Transfusion: No Pulmonary Disease (Asthma, TB): No Breast Disease: No Hypertension: No [employer] Surgery: No Heart Disease: No Hosp/Surgery: No Autoimmune Disorder: No Anesthetic Complications: No Kidney Disease: No Abnormal Pap Smear: No Neuro/Epilepsy: No Psychiatric Disorders: No Other Medical Diseases: No Hepatitis/Liver Disease: No Significant Family History: No Varicosities/Phlebitis: No Trauma/Violence : No Thyroid Dysfunction: No INFECTIOUS HISTORY Gonorrhea: Yes Genital Herpes: Yes Chlamydia: Yes Tuberculosis: No Syphilis: No Hepatitis: No HIV/AIDS Exposure: No Rash or Viral Illness: No HPV: No Infectious History Comments: Pt says has not taken acyclovir for about a year PHYSICAL EXAM General: Normal HEENT: Normal Neurologic: Normal Thyroid: Deferred Heart: Normal Lungs: Normal Breast: Deferred Back: Normal Abdomen: Normal Genitourinary Exam: Deferred Extremities: Abnormal DTRs: Normal Pelvic Type: Not Done Physical Exam Comments: 2+ pitting edema pretibial Vital Signs: Reviewed Details Vital Signs: elevate b/p on admit VAGINAL EXAM Dilatation: 2 Dilatation: ft Dilatation: ft Effacement: th Effacement: th Station: -3 Station: -3 Contraction Comments: q 1-4 MEMBRANES Membranes: Intact Membranes: Intact FETUS A EGA: 35.4 Monitoring: External US FHR- Baseline: 130 Variability: Moderate 6-25bpm Accelerations: 15X15 FHR Category: Category I Presentation: Vertex Admit Comment: G1 Chronic HTN with super imposed pre-eclampsia Excessive wt gain GDM-on Glyburide Hx HSV-no prophylaxis, no recent outbreaks 2+ pitting edema Plan: admit for cervical ripening and IOL PLANS FOR LABOR AND DELIVERY Labor and Delivery: None Pain Management: Epidural Feeding Preference: Breast Benefit of Breast Feed Discussed: Yes Circumcision: N/A INFORMED CONSENT Informed Consent Obtained: Section Delivery Informed Consent Obtained: Vaginal Delivery; Section Delivery; Risks, Benefits and Alternatives Discussed Informed Consent Obtained: Vaginal Delivery; Risks, Benefits and Alternatives Discussed Assignment: Anjali Alvarez MD Signature: with User ID: Kirt : with User ID: Kirt : I personally evaluated and examined the patient in conjunction with the MLP and agree with the assessment, treatment plan and disposition.
[2017-05-19] MEDS ORDERED: ONDANSETRON 4 MG TAB.RAPDIS PO PRN (09:24)
[2017-05-19] MEDS: LABETALOL HCL 200 MG TABLET PO SCH ×2 (09:45→21:26)
[2017-05-19] MEDS: DOCUSATE SODIUM 100 MG CAPSULE PO SCH ×2 (09:45→18:30)
[2017-05-19] MEDS: PRENATAL VITAMIN W DHA CAPSULE PO SCH (09:45)
[2017-05-19] MEDS ORDERED: PRENATAL VITAMIN W DHA CAPSULE PO SCH (10:00)
[2017-05-20] MEDS: IBUPROFEN 800 MG TABLET PO SCH ×4 (04:29→18:27)
[2017-05-20 06:59] LABS: HEMATOCRIT 29.8 % (36.0-47.0); HGB HCT DIFFERENCE -0.4; MEAN CORPUSCULAR HEMOGLOBIN 27.4 pg (27.0-33.4); MEAN CORPUSCULAR HGB CONC 32.9 g/dL (32.0-36.0); MEAN CORPUSCULAR VOLUME 83 fl (80-97); RED BLOOD COUNT 3.59 10^6/uL (3.72-5.28); RED CELL DISTRIBUTION WIDTH 14.9 % (11.5-14.0); WHITE BLOOD COUNT 22.3 10^3/uL (4.0-10.5)
[2017-05-20 08:24] LABS: HEMOGLOBIN 9.8 g/dL (12.0-15.5)
[2017-05-20] MEDS: PRENATAL VITAMIN W DHA CAPSULE PO SCH (10:34)
[2017-05-20] MEDS: DOCUSATE SODIUM 100 MG CAPSULE PO SCH ×2 (10:35→18:27)
[2017-05-20] MEDS: LABETALOL HCL 200 MG TABLET PO SCH ×2 (10:35→22:50)
--- NOTE | 2017-05-20 10:52 | PDOC PROGRESS REPORT ---
Subjective-OB Subjective: Post Delivery Day: 22 year old. Denies any needs at this time. not , discussed pumping every 2-3 hours or baby to breast with nursery help. states pain is controlled with current meds, tolerating diet, has not had BM yet but + flatus. Physical Exam (OB) Vital Signs: Temp Pulse Resp BP Pulse Ox 98.2 F 102 H 18 150/93 H 97 05/20/17 08:00 05/20/17 08:00 05/20/17 08:00 05/20/17 08:00 05/20/17 08:00 Intake & Output 05/19/17 05/20/17 05/21/17 06:59 06:59 06:59 Intake Total 640 450 Balance 640 450 - PIH/Pre-Eclampsia Clonus: Negative Headache: Absent Epigastric Pain: No Visual Changes: No - Dressing Removed: No - opsite dressing in place Incision: Dressing - intact, clean - Abdomen Description: Tender, Soft, Round Hernia Present: No Fundal Description: Firm, Midline Fundal Height: u/u - u/2 - Extremities Lower extremities: Esau's sign - neg Calf: Nontender - 1+ pitting edema bilaterally Objective-Diagnostic Laboratory: 05/20/17 06:30 05/18/17 17:23 05/20/17 06:30 WBC 22.3 H RBC 3.59 L Hgb 9.8 L D Hct 29.8 L MCV 83 MCH 27.4 MCHC 32.9 RDW 14.9 H Plt Count 141 L Assessment and Plan(PN) - Assessment and Plan (1) Chronic hypertension with superimposed preeclampsia Is this a current diagnosis for this admission?: Yes (2) delivery due to maternal disorder Is this a current diagnosis for this admission?: Yes - Time Spent with Patient Time with patient: Less than 15 minutes Medications reviewed and adjusted accordingly: Yes - Disposition Anticipated Discharge: Home Within: within 24 hours
[2017-05-21] MEDS: IBUPROFEN 800 MG TABLET PO SCH ×3 (00:09→12:04)
[2017-05-21] MEDS: DOCUSATE SODIUM 100 MG CAPSULE PO SCH (09:02)
[2017-05-21] MEDS: LABETALOL HCL 200 MG TABLET PO SCH (09:02)
[2017-05-21] MEDS: PRENATAL VITAMIN W DHA CAPSULE PO SCH (09:02)
--- NOTE | 2017-05-21 09:54 | PDOC DISCHARGE SUMMARY ---
Final Diagnosis Discharge Date: 05/21/17 - Final Diagnosis (1) Chronic hypertension with superimposed preeclampsia Is this a current diagnosis for this admission?: Yes (2) delivery due to maternal disorder Is this a current diagnosis for this admission?: Yes Discharge Data - Discharge Medication Prescriptions: Docusate Sodium [Colace 100 mg Capsule] 100 mg PO BID #60 capsule Ferrous Sulfate [[place]] 325 mg PO BID #60 tablet Hydrocodone/Acetaminophen [Vicodin 5-300 mg Tablet] 1 each PO Q4HP PRN #20 tablet PRN Reason: Ibuprofen [Motrin 800 mg Tablet] 800 mg PO Q8HP PRN #60 tablet PRN Reason: Labetalol HCl [Normodyne 200 mg Tablet] 200 mg PO Q12 #60 tablet Home Medications: Vit 93/Iron Fum/Folic [ Formula Tablet] 1 tab PO DAILY Docusate Sodium [Colace 100 mg Capsule] 100 mg PO BID #60 capsule 05/21/17 Ferrous Sulfate [[place]] 325 mg PO BID #60 tablet 05/21/17 Hydrocodone/Acetaminophen [Vicodin 5-300 mg Tablet] 1 each PO Q4HP PRN #20 tablet 05/21/17 Ibuprofen [Motrin 800 mg Tablet] 800 mg PO Q8HP PRN #60 tablet 05/21/17 Labetalol HCl [Normodyne 200 mg Tablet] 200 mg PO Q12 #60 tablet 05/21/17 Reason(s) for Admission: PIH Procedures: NST Intrapartum Procedure(s): : Low Cervical, Transverse - Diagnosis Test Laboratory: Temp Pulse Resp BP Pulse Ox 98.1 F 89 18 145/82 H 97 05/21/17 04:17 05/21/17 04:17 05/21/17 04:17 05/21/17 04:17 05/21/17 04:17 05/17/17 05/17/17 05/18/17 15:23 16:04 06:07 RBC 4.80 4.95 Hgb 13.1 13.7 Hct 39.5 40.0 Urine Opiates Screen NEGATIVE 05/18/17 05/20/17 17:23 06:30 RBC 4.68 3.59 L Hgb 12.7 9.8 L D Hct 38.3 29.8 L Urine Opiates Screen - Discharge information/Instructions Discharge Activity: Balance Activity w/Rest, No Lifting/Push/Pulling, Pelvic Rest, No tub bath Discharge Diet: Regular Disposition: HOME, SELF-CARE Follow up with: [facility] in: 1, Weeks - BP and incision check
[2017-05-21 11:47] VITALS: BP 146/99
== END 2017-05-21 12:24 | disposition home or self-care (01) | DRG 766 ==
LOC: LC 15:14 → LR 16:09 → 2S 05-19 08:52
PROVIDERS: ADMIT Obstetrics & Gynecology; ATTEND Obstetrics & Gynecology
PROC: 10D00Z1 Extraction of Products of Conception, Low, Open Approach (ICD-10-PCS; principal; 2017-05-18)
DX: O14.14 Severe pre-eclampsia complicating childbirth (principal); O13.4 Gestational [pregnancy-induced] hypertension without significant proteinuria, complicating childbirth; O24.425 Gestational diabetes mellitus in childbirth, controlled by oral hypoglycemic drugs; O26.03 Excessive weight gain in pregnancy, third trimester; O69.81X0 Labor and delivery complicated by cord around neck, without compression, not applicable or unspecified; O76 Abnormality in fetal heart rate and rhythm complicating labor and delivery; Z3A.35 35 weeks gestation of pregnancy; Z37.0 Single live birth
CPT/HCPCS: 1961; 36415; 80053; 80307; 83615; 83735; 84550; 85025; 85027; 85610; 85730; 86592; 86850; 86900; 86901; 94760; 94799; J0360; J0690; J1170; J1940; J2250; J2300; J2370; J2405; J2590; J3010; J3475; J3490; S0119

== ENCOUNTER 2019-07-25 16:50 | Outpatient (CLI) | payer MEDICAID ==
[2019-07-25 17:46] LABS: ABSOLUTE EOSINOPHILS # (AUTO) 0.1 10^3/uL (0.0-0.6); ABSOLUTE LYMPHOCYTES (AUTO) 1.2 10^3/uL (0.5-4.7); ABSOLUTE MONOCYTES (AUTO) 0.8 10^3/uL (0.1-1.4); ABSOLUTE NEUT (AUTO) 5.3 10^3/uL (1.7-8.2); BASOPHILS % (AUTO) 0.4 % (0-2); EOSINOPHILS % (AUTO) 0.7 % (0-6); HEMATOCRIT 36.9 % (36.0-47.0); HEMOGLOBIN 12.6 g/dL (12.0-15.5); LYMPHOCYTES % (AUTO) 16.1 % (13-45); MEAN CORPUSCULAR HGB CONC 34.1 g/dL (32.0-36.0); MEAN CORPUSCULAR VOLUME 76 fl (80-97); MONOCYTES % (AUTO) 10.7 % (3-13); PLATELET COUNT 181 10^3/uL (150-450); RED BLOOD COUNT 4.84 10^6/uL (3.72-5.28); RED CELL DISTRIBUTION WIDTH 14.3 % (11.5-14.0); SEGMENTED NEUTROPHILS % (AUTO) 72.1 % (42-78); TOTAL CELLS COUNTED % (AUTO) 100 %; WHITE BLOOD COUNT 7.3 10^3/uL (4.0-10.5)
[2019-07-25 18:02] LABS: ALBUMIN 3.1 g/dL (3.5-5.0); ALKALINE PHOSPHATASE 184 U/L (38-126); ANION GAP 7 (5-19); ASPARTATE AMINO TRANSFERASE 21 U/L (14-36); BILIRUBIN,DIRECT 0.3 mg/dL (0.0-0.4); BILIRUBIN,TOTAL 0.3 mg/dL (0.2-1.3); BLOOD UREA NITROGEN 12 mg/dL (7-20); CALCIUM 9.1 mg/dL (8.4-10.2); CARBON DIOXIDE 23 mmol/L (22-30); CHLORIDE 105 mmol/L (98-107); GLUCOSE 78 mg/dL (75-110); POTASSIUM 4.1 mmol/L (3.6-5.0); TOTAL PROTEIN 6.7 g/dL (6.3-8.2); URIC ACID 3.7 mg/dL (2.5-6.2)
[2019-07-25 18:16] LABS: APPEARANCE,URINE SLIGHTLY-CLOUDY; BILIRUBIN,URINE NEGATIVE (NEGATIVE); COLOR,URINE YELLOW; GLUCOSE, URINE >=500 mg/dL (NEGATIVE); KETONES,URINE NEGATIVE (NEGATIVE); LEUKOCYTE ESTERASE,URINE SMALL (NEGATIVE); NITRITE,URINE NEGATIVE (NEGATIVE); PROTEIN,URINE NEGATIVE (NEGATIVE); URINE SPECIFIC GRAVITY 1.007; UROBILINOGEN,URINE NEGATIVE mg/dL (<2.0)
[2019-07-25 18:19] LABS: URINE AMPHETAMINES SCREEN NEGATIVE; URINE BARBITURATES SCREEN NEGATIVE; URINE BENZODIAZEPINES SCREEN NEGATIVE; URINE COCAINE SCREEN NEGATIVE; URINE MARIJUANA (THC) SCREEN NEGATIVE; URINE METHADONE SCREEN NEGATIVE; URINE PHENCYCLIDINE SCREEN NEGATIVE
[2019-07-25 18:23] LABS: UR PRO/CREAT RATIO RESULT 0.3 mg/mg (0.0-0.2); URINE CREATININE 47.3 mg/dL (16-327); URINE PROTEIN 15.5 mg/dL (<12)
== END 2019-07-25 19:00 | disposition home or self-care (01) ==
LOC: LC 16:50
PROVIDERS: ATTEND Obstetrics & Gynecology
PROC: 4A1HXCZ Monitoring of Products of Conception, Cardiac Rate, External Approach (ICD-10-PCS; principal; 2019-07-25)
DX: O16.3 Unspecified maternal hypertension, third trimester (principal); R51 Headache; Z3A.35 35 weeks gestation of pregnancy
CPT/HCPCS: 36415; 59025; 80053; 80307; 81001; 82570; 83615; 84156; 84550; 85025

== ENCOUNTER 2019-07-26 20:14 | Outpatient (CLI) | payer MEDICAID ==
[2019-07-26 20:56] LABS: APPEARANCE,URINE CLEAR; BILIRUBIN,URINE NEGATIVE (NEGATIVE); COLOR,URINE YELLOW; GLUCOSE, URINE 150 mg/dL (NEGATIVE); KETONES,URINE NEGATIVE (NEGATIVE); LEUKOCYTE ESTERASE,URINE TRACE (NEGATIVE); NITRITE,URINE NEGATIVE (NEGATIVE); PROTEIN,URINE NEGATIVE (NEGATIVE); URINE SPECIFIC GRAVITY 1.011; UROBILINOGEN,URINE NEGATIVE mg/dL (<2.0)
[2019-07-26 21:05] LABS: URINE AMPHETAMINES SCREEN NEGATIVE; URINE BARBITURATES SCREEN NEGATIVE; URINE BENZODIAZEPINES SCREEN NEGATIVE; URINE COCAINE SCREEN NEGATIVE; URINE MARIJUANA (THC) SCREEN NEGATIVE; URINE METHADONE SCREEN NEGATIVE; URINE PHENCYCLIDINE SCREEN NEGATIVE
[2019-07-26 21:09] LABS: URINE PROTEIN 12.9 mg/dL (<12)
[2019-07-26 21:12] LABS: 24 HOUR URINE PROTEIN RESULT 248 mg/day (42-225)
[2019-07-26 22:06] LABS: URINE CREATININE 67.8 mg/dL (16-327)
== END 2019-07-26 21:36 | disposition home or self-care (01) ==
LOC: LC 20:14
PROVIDERS: ATTEND Obstetrics & Gynecology
PROC: 4A1HXCZ Monitoring of Products of Conception, Cardiac Rate, External Approach (ICD-10-PCS; principal; 2019-07-26)
DX: O16.3 Unspecified maternal hypertension, third trimester (principal); R51 Headache; Z3A.35 35 weeks gestation of pregnancy
CPT/HCPCS: 59025; 80307; 81001; 82570; 84156

== ENCOUNTER 2019-08-04 09:39 | Inpatient (IN) | payer MEDICAID ==
--- NOTE | 2019-08-04 09:40 | Non Stress Test Report ---
Non Stress Test Datetime Report Generated by CPN: 08/04/2019 09:40 DEMOGRAPHIC Test Number: 1 EGA NST: 35.6 EGA NST: 35.5 INDICATION Indication for Study (NST) Other: gestational age greater than 32 weeks Indication for Study (NST) Other: ordered by provider VITAL SIGNS Temperature - NST: 98.7 Temperature - NST: 98.2 Pulse - NST: 85 Pulse - NST: 80 RESP - NST: 16 RESP - NST: 18 NBPSYS NST: 133 NBPSYS NST: 108 NBPDIA NST: 79 NBPDIA NST: 59 MONITORING Monitor Explained: Monitor Explained; Test Explained; Patient Verbalized Understanding Monitor Explained: Monitor Explained; Test Explained; Patient Verbalized Understanding Time on Monitor: 07/26/2019 20:27 Time on Monitor: 07/25/2019 17:11 Time off Monitor: 07/26/2019 21:27 Time off Monitor: 07/25/2019 18:47 NST Duration: 60 NST Duration: 96 NST INTERVENTIONS NST Interventions: PO Hydration NST Interventions: PO Hydration Physician Notified NST: Dr. Barraza Physician Notified NST: Dr Younger BABY A: [id number] BABY A Movement : Present Movement : Present Movement : Present Contraction Frequency : none Contraction Frequency : 0 FHR Baseline : 135 FHR Baseline : 120 Accelerations : 15X15 Accelerations : 15X15 Decelerations : None Decelerations : None Variability : Moderate 6-25bpm Variability : Moderate 6-25bpm NST Review: Meets Criteria for Reactive NST NST Review: Meets Criteria for Reactive NST NST Review and Verified By : Bart Fuller RN NST Review and Verified By : KALEE FeltonT Results: Reactive NST Results: Reactive NST REPORT Report Trigger: Send Report
[2019-08-04] MEDS ORDERED: CEFAZOLIN SODIUM 2 GM in DEXTROSE 5%-WATER 50 ML IV PRN (09:49)
[2019-08-04] MEDS ORDERED: DIPH/PERTUSS(ACELL)/TETANUS VAC/PF 0.5 ML SYR (>=10YO) IM PRN (09:49)
[2019-08-04] MEDS ORDERED: OXYTOCIN/NORMAL SALINE 20 UNIT/1,000 ML RTUINJ IV PRN (09:49)
[2019-08-04] MEDS ORDERED: OXYCODONE-ACETAMINOPHEN 5-325 MG TABLET PO PRN (09:49)
[2019-08-04] MEDS ORDERED: MEASLES,MUMPS&RUBELLA VACC/PF 0.5 ML VIAL SUBCUT PRN (09:49)
[2019-08-04] MEDS ORDERED: ACETAMINOPHEN 325 MG TABLET PO PRN (09:49)
[2019-08-04] MEDS ORDERED: SIMETHICONE 80 MG TAB.CHEW PO PRN (09:49)
[2019-08-04] MEDS ORDERED: ACETAMINOPHEN 1,000 MG/100 ML RTUPB IV PRN (09:49)
[2019-08-04] MEDS ORDERED: PROMETHAZINE HCL INJ 25 MG/1 ML VIAL IV PRN (09:49)
--- NOTE | 2019-08-04 09:51 | Admission Physical ---
Datetime Report Generated by CPN: 08/04/2019 09:50 CURRENT ADMISSION Chief Complaint: Sent from OB Office for Evaluation and Treatment - Please Specify Chief Complaint Other: sent for c/o headache and elevated BPs. 24 hour urine protein of 380 last week. previous c/section. Indication for Induction: Not Applicable Admit Impression : Term, Intrauterine ; Repeat Section Admit Impression- Other: previous c/section and h/o PreE in the previous . Admit Plan: Admit to Unit; Initiate Section Protocol ALLERGIES Medication Allergies: No Medication Allergies: No Known Allergies (08/04/2019) Food Allergies: none Environmental Allergies: none OBSTETRICAL HISTORY EDC: 08/24/2019 00:00 : 2 Para: 1 Livin (Annotations: Data stored by CPN on behalf of user) PHYSICAL EXAM General: Normal HEENT: Normal Neurologic: Normal Thyroid: Normal Heart: Normal Lungs: Normal Breast: Normal Back: Normal Abdomen: Normal Genitourinary Exam: Normal Extremities: Normal DTRs: Normal Pelvic Type: Adequate Vital Signs: Reviewed MEMBRANES Pooling: Negative FETUS A EGA: 37.1 Monitoring: External US FHR- Baseline: 140 Variability: Moderate 6-25bpm Accelerations: 15X15 Decelerations: None FHR Category: Category I Estimated Weight (gm): 3200 Admit Comment: proceed with repeat c/section. monitor BPs and if remains elevated post surgery will keep for Magnesium. declines BTL INFORMED CONSENT Signature: with User ID: [email or web address]
--- NOTE | 2019-08-04 10:05 | Admission Physical ---
Datetime Report Generated by CPN: 08/04/2019 10:04 CURRENT ADMISSION Chief Complaint: Uterine Contractions; Maternal Discomfort Chief Complaint Other: sent for c/o headache and elevated BPs. 24 hour urine protein of 380 last week. previous c/section. Indication for Induction: Not Applicable Admit Impression : Term, Intrauterine ; Active Labor Admit Impression- Other: previous c/section and h/o PreE in the previous . Admit Plan: Admit to Unit; Initiate Labor Protocol ALLERGIES Medication Allergies: No Medication Allergies: No Known Allergies (08/04/2019) Latex: No Latex Allergies Food Allergies: none Environmental Allergies: none OBSTETRICAL HISTORY EDC: 08/24/2019 00:00 : 2 Para: 1 Livin (Annotations: Data stored by CPN on behalf of user) PHYSICAL EXAM General: Normal HEENT: Normal Neurologic: Normal Thyroid: Normal Heart: Normal Lungs: Normal Breast: Normal Back: Normal Abdomen: Normal Genitourinary Exam: Normal Extremities: Normal DTRs: Normal Pelvic Type: Adequate Vital Signs: Reviewed; Within Normal Limits MEMBRANES Pooling: Negative Membranes: Intact FETUS A EGA: 37.1 Monitoring: External US FHR- Baseline: 135 Variability: Moderate 6-25bpm Accelerations: 15X15 Decelerations: None FHR Category: Category I Estimated Weight (gm): 3200 Admit Comment: at 38.5 wks presents this morning c/o contractions. Denies leaking fluid. GBS negative. VE per RN pt is 4 cm. Plans natural labor. Will admit and AROM with further cervical change. Attending MD is Dr Barraza, aware of pts status. INFORMED CONSENT Assignment: Virginia Barraza MD Signature: with User ID: Selena : with User ID: Selena
[2019-08-04 10:13] LABS: ABSOLUTE BASOPHILS # (AUTO) 0.1 10^3/uL (0.0-0.2); ABSOLUTE EOSINOPHILS # (AUTO) 0.1 10^3/uL (0.0-0.6); ABSOLUTE LYMPHOCYTES (AUTO) 1.4 10^3/uL (0.5-4.7); ABSOLUTE MONOCYTES (AUTO) 0.7 10^3/uL (0.1-1.4); ABSOLUTE NEUT (AUTO) 6.7 10^3/uL (1.7-8.2); BASOPHILS % (AUTO) 0.8 % (0-2); EOSINOPHILS % (AUTO) 0.7 % (0-6); HEMATOCRIT 37.9 % (36.0-47.0); LYMPHOCYTES % (AUTO) 15.4 % (13-45); MEAN CORPUSCULAR HGB CONC 34.3 g/dL (32.0-36.0); MEAN CORPUSCULAR VOLUME 76 fl (80-97); MONOCYTES % (AUTO) 7.9 % (3-13); PLATELET COUNT 183 10^3/uL (150-450); RED BLOOD COUNT 5.01 10^6/uL (3.72-5.28); RED CELL DISTRIBUTION WIDTH 14.7 % (11.5-14.0); SEGMENTED NEUTROPHILS % (AUTO) 75.2 % (42-78); TOTAL CELLS COUNTED % (AUTO) 100 %
[2019-08-04] MEDS ORDERED: KETOROLAC TROMETHAMINE INJ/PF 30 MG/1 ML SDV ONE (10:17)
[2019-08-04] MEDS ORDERED: OXYTOCIN 10 UNIT/ML VIAL ONE ×2 (10:17→11:53)
[2019-08-04] MEDS ORDERED: GLYCOPYRROLATE INJ 0.4 MG/2 ML VIAL ONE ×2 (10:17→10:32)
[2019-08-04] MEDS ORDERED: PHENYLEPHRINE HCL INJ/PF 10 MG/1 ML SDV ONE (10:17)
[2019-08-04] MEDS ORDERED: FENTANYL CITRATE INJ/PF 100 MCG/2 ML AMPUL ONE ×2 (10:17→10:32)
[2019-08-04] MEDS ORDERED: OXYTOCIN/NORMAL SALINE 20 UNIT/1,000 ML RTUINJ ONE (10:18)
[2019-08-04] MEDS ORDERED: ONDANSETRON HCL INJ/PF 4 MG/2 ML SDV ONE (10:18)
[2019-08-04] MEDS ORDERED: MIDAZOLAM 2 MG/2 ML INJ ONE (10:18)
[2019-08-04 10:19] LABS: APPEARANCE,URINE SLIGHTLY-CLOUDY; BILIRUBIN,URINE NEGATIVE (NEGATIVE); COLOR,URINE YELLOW; GLUCOSE, URINE 50 mg/dL (NEGATIVE); KETONES,URINE NEGATIVE (NEGATIVE); LEUKOCYTE ESTERASE,URINE NEGATIVE (NEGATIVE); NITRITE,URINE NEGATIVE (NEGATIVE); PROTEIN,URINE 30 mg/dL (NEGATIVE); URINE SPECIFIC GRAVITY 1.018; UROBILINOGEN,URINE NEGATIVE mg/dL (<2.0)
[2019-08-04] MEDS ORDERED: CEFAZOLIN SODIUM 2 GM in DEXTROSE 5%-WATER 100 ML IV PRN (10:30)
[2019-08-04] MEDS ORDERED: CITRIC ACID/SODIUM CITRATE ORAL SOLN 15 ML UDCUP ONE (10:31)
[2019-08-04] MEDS ORDERED: EPHEDRINE SULFATE INJ 50 MG/1 ML AMPULE ONE (10:32)
[2019-08-04] MEDS ORDERED: LIDOCAINE 2% INJ-PF (20 MG/ML) 10 ML AMPUL ONE ×2 (10:32→11:17)
[2019-08-04] MEDS ORDERED: BUPIVACAINE HCL 0.25 % INJ/PF (2.5 MG/1 ML) 30 ML VIAL ONE (10:33)
[2019-08-04] MEDS ORDERED: BUPIVACAINE HCL/NS/PF 0 MG/0 ML RTUINJ EPI ONE (10:33)
[2019-08-04 10:38] LABS: URINE AMPHETAMINES SCREEN NEGATIVE; URINE BARBITURATES SCREEN NEGATIVE; URINE BENZODIAZEPINES SCREEN NEGATIVE; URINE COCAINE SCREEN NEGATIVE; URINE MARIJUANA (THC) SCREEN NEGATIVE; URINE METHADONE SCREEN NEGATIVE; URINE PHENCYCLIDINE SCREEN NEGATIVE
--- NOTE | 2019-08-04 12:26 | Operative Report ---
Operative Report DATE OF SURGERY: 08/04/19 PREOPERATIVE DIAGNOSIS: IUP @ 37 06/03, pre E, previous c/section POSTOPERATIVE DIAGNOSIS: same OPERATION: Repeat low transverse hysterotomy section SURGEON: TERESA BOWMAN ANESTHESIA: Epidural COMPLICATIONS: none ESTIMATED BLOOD LOSS: 800 cc INTRAOPERATIVE FINDINGS: Male infant cephalic presentation with Apgars of 8 and 9. 9 lbs 6 oz PROCEDURE: PROCEDURE IN DETAIL: The patient was taken to the operating room, prepared and draped in a normal sterile fashion in a supine position with a leftward tilt. A transverse skin incision was made with a scalpel and carried through to the underlying layer of fascia with the same scalpel. The fascia was excised in the midline and extended laterally with Gregg. The fascia was then dissected from the rectus muscle sharply with Gregg and the rectus muscle was divided and the peritoneal cavity was entered sharply with the same Metzenbaum. With good visualization of the bladder and the uterus the bladder blade was inserted. The hysterotomy was nicked with a scalpel and extended laterally with surgeon finger fraction. The infant was then delivered atraumatically. The nose and mouth were suctioned with a suction bulb, the cord was clamped and cut and handed off to awaiting pediatricians. Cord blood was collected. The placenta was removed manually. The uterus was exteriorized and cleared of clots and debris. The hysterotomy was closed with 0 Monocryl in a running, locked fashion. A second layer of the same suture was used to imbricate to ensure hemostasis. The uterus was returned to the abdomen and peritoneal cavity was cleared of clots and debris. The rectus muscle and peritoneum were repaired with mattress stitch of 2-0 Chromic. The fascia was closed with 0-Vicryl. The subcutaneous layer was closed with plain catgut and the skin was closed with 4-0 Vicryl. The patient tolerated the procedure well. Sponge, lap, and needle counts correct x2 and the patient was taken to recovery in stable condition.
[2019-08-04] MEDS ORDERED: ACETAMINOPHEN 1,000 MG/100 ML RTUPB IV ONE (12:56)
--- NOTE | 2019-08-04 13:22 | Warning Signs in Babies ---
VOD Warning Signs Datetime Report Generated by [facility]: 08/04/2019 13:22 VOD#608 -Warning Signs in Babies: Needs to be viewed. (07/25/2019 16:54:Marlen Barajas RN)
--- NOTE | 2019-08-04 13:38 | Delivery Summary ---
Del Sum A-C Datetime Report Generated by CPN: 08/04/2019 13:38 DELIVERY PERSONNEL DELIVERY PERSONNEL: [id number] Delivery Doctor:: Virginia Barraza MD Anesthesiologist:: Jerzy Campos MD GROUP SUPERVISOR YARD:: Micheal Normile, GROUP SUPERVISOR YARD Director Of Accreditation:: Marlen Barajas RN Neonatal Nurse Practitioner:: GETACHEW Walker Nursery Nurse:: Patrica Alexander RN Nursery Nurse:: Beverley Mathias RN Supervisor Public Health Nursing/DOCKET SPECIALIST: Mila Lorenz, GUEST ROOM INSPECTOR Supervisor Public Health Nursing/DOCKET SPECIALIST: Bruna Vasquez, GUEST ROOM INSPECTOR MATERNAL INFORMATION Delivery Anesthesia: Epidural Medications After Delivery: Pitocin Bolus-Please Comment Meds After Delivery Comment: Pitocin 20 units in 1000mL NS open bolus x 2 Delivery QBL: 1049 Maternal Complications: None; Hemorrhage LABOR SUMMARY EDC: 08/24/2019 00:00 LABOR INFORMATION Group B Beta Strep: negative STAGES OF LABOR Stage 3 hr: 0 Stage 3 min: 1 VAGINAL DELIVERY Episiotomy: None Laceration #1: None Laceration Extension #1: N/A Laceration Repair: Not Applicable CSECTION DELIVERY Primary Indication: Other Other Primary Indication: preeclamsia CSection Urgency: Non-Scheduled CSection Incidence: Repeat Labor: No Labor Elective: N/A CSection Incision: Lower Uterine Transverse BABY A INFORMATION Infant Delivery Date/Time: 08/04/2019 11:50 Method of Delivery: Nurse Controlled Delivery: No Born in Route : No : N/A Forceps: N/A Vacuum Extraction: N/A Shoulder Dystocia : No PRESENTATION/POSITION BABY A Presentation: Cephalic PLACENTA INFORMATION BABY A Placenta Delivery Time : 08/04/2019 11:51 Placenta Method of Delivery: Manual Removal Placenta Status: Delivered SCORES BABY A Heart Rate 1 min: >100 bpm Resp Effort 1 min: Good Cry Reflex Irritability 1 min: Cough or Sneeze or Pulls Away Muscle Tone 1 min: Active Motion Color 1 min: Body [place], Extremities Blue SCORE 1 MIN: 9 Heart Rate 5 min: >100 bpm Resp Effort 5 min: Good Cry Reflex Irritability 5 min: Cough or Sneeze or Pulls Away Muscle Tone 5 min: Active Motion Color 5 min: Body [place], Extremities Blue SCORE 5 MIN: 9 INFORMATION BABY A Gestational Age at Delivery: 37.1 Gestational Status: Early Term- 37- 38.6 Weeks Infant Outcome : Liveborn Condition : Stable Sex: Male IDENTIFICATION BABY A Infant Verification Date/Time: 08/04/2019 11:55 ID Band Number: [id number] Mother's Name Verified: Yes Infant RN Verifying : [place]aceli [place] berkowitz Additional Verifying Personnel: Bart Alexander RN WEIGHT/LENGTH BABY A Birthweight (gm): 4250 Infant Weight (lb): 9 Weight (oz): 6 Infant Length (in): 20.75 Infant Length (cm): 52.71 CORD INFORMATION BABY A No. Cord Vessels: 3 Nuchal Cord : N/A Cord Blood Taken: Yes-For Storage (Mom's Blood type +) ASSESSMENT BABY A Skin to Skin: No
[2019-08-04] MEDS: PRENATAL VITAMIN W DHA CAPSULE PO SCH (13:47)
[2019-08-04] MEDS: DOCUSATE SODIUM 100 MG CAPSULE PO SCH ×2 (17:21→17:59)
[2019-08-04] MEDS: KETOROLAC TROMETHAMINE INJ/PF 30 MG/1 ML SDV IV SCH ×2 (17:22→21:36)
[2019-08-04] MEDS: OXYCODONE-ACETAMINOPHEN 5-325 MG TABLET PO PRN (17:59)
[2019-08-05] MEDS: KETOROLAC TROMETHAMINE INJ/PF 30 MG/1 ML SDV IV SCH (05:40)
[2019-08-05 09:48] LABS: MEAN CORPUSCULAR VOLUME 77 fl (80-97); RED BLOOD COUNT 4.28 10^6/uL (3.72-5.28)
[2019-08-05 09:54] LABS: HEMATOCRIT 32.8 % (36.0-47.0); HEMOGLOBIN 10.8 g/dL (12.0-15.5); MEAN CORPUSCULAR HEMOGLOBIN 25.3 pg (27.0-33.4); MEAN CORPUSCULAR HGB CONC 33.1 g/dL (32.0-36.0); PLATELET COUNT 148 10^3/uL (150-450); RED CELL DISTRIBUTION WIDTH 14.9 % (11.5-14.0); WHITE BLOOD COUNT 12.8 10^3/uL (4.0-10.5)
--- NOTE | 2019-08-05 09:56 | PDOC PROGRESS REPORT ---
Subjective-OB Progress Note for:: 08/05/19 Subjective: reports bleeding slowing, pain controlled with current meds. denies needs Physical Exam (OB) Vital Signs: Temp Pulse Resp BP Pulse Ox 97.2 F 71 20 137/68 H 97 08/05/19 04:18 08/05/19 04:18 08/05/19 04:18 08/05/19 04:18 08/05/19 04:18 Intake & Output 08/04/19 08/05/19 08/06/19 06:59 06:59 06:59 Intake Total 360 Output Total 1800 Balance -1440 Weight 113 kg - Dressing Removed: Yes - pressure dsg removed, op site CDI with dried blood-scant Incision: Dressing Closure Type: pressure - Abdomen Description: Soft, Round Hernia Present: No Fundal Description: Firm, Midline Fundal Height: u/u - u/2 - Abdominal Distension: No distension Tenderness: Nontender - Extremities Lower extremities: Esau's sign - neg Calf: Normal, Nontender Objective-Diagnostic Laboratory: 08/04/19 08/04/19 08/04/19 09:50 09:57 09:57 WBC 9.0 RBC 5.01 Hgb 13.0 Hct 37.9 MCV 76 L MCH 26.0 L MCHC 34.3 RDW 14.7 H Plt Count 183 Seg Neutrophils % 75.2 Urine Color YELLOW Urine Appearance SLIGHTLY-CLOUDY Urine pH 6.0 Ur Specific [place] 1.018 Urine Protein 30 H Urine Glucose (UA) 50 H Urine Ketones NEGATIVE Urine Blood NEGATIVE Urine Nitrite NEGATIVE Ur Leukocyte Esterase NEGATIVE Urine WBC (Auto) 2 Urine RBC (Auto) 1 Blood Type B POSITIVE Antibody Screen NEGATIVE Assessment and Plan(PN) - Assessment and Plan (1) delivery due to maternal disorder Is this a current diagnosis for this admission?: Yes - Time Spent with Patient Time with patient: Less than 15 minutes - Disposition Anticipated Discharge: Home Within: within 48 hours
[2019-08-05] MEDS: DOCUSATE SODIUM 100 MG CAPSULE PO SCH ×3 (10:15→19:10)
[2019-08-05] MEDS: PRENATAL VITAMIN W DHA CAPSULE PO SCH (10:15)
[2019-08-05] MEDS: OXYCODONE-ACETAMINOPHEN 5-325 MG TABLET PO PRN ×2 (12:48→19:10)
[2019-08-05] MEDS: IBUPROFEN 800 MG TABLET PO SCH ×2 (15:24→22:37)
[2019-08-06] MEDS: IBUPROFEN 800 MG TABLET PO SCH ×2 (05:28→13:15)
[2019-08-06] MEDS: PRENATAL VITAMIN W DHA CAPSULE PO SCH (09:21)
[2019-08-06] MEDS: DOCUSATE SODIUM 100 MG CAPSULE PO SCH (09:21)
[2019-08-06 11:48] VITALS: BP 124/67
--- NOTE | 2019-08-06 12:20 | PDOC DISCHARGE SUMMARY ---
Impression - Admit/DC Date/PCP Admission Date/Primary Care Provider: 08/04/19 09:43 TERESA BOWMAN MD Discharge Date: 08/06/19 - Discharge Diagnosis (1) delivery due to maternal disorder Is this a current diagnosis for this admission?: Yes (2) Chronic hypertension with superimposed preeclampsia Is this a current diagnosis for this admission?: Yes (3) Acute blood loss anemia Is this a current diagnosis for this admission?: Yes (4) hemorrhage Is this a current diagnosis for this admission?: Yes (5) S/P repeat low transverse Is this a current diagnosis for this admission?: Yes - Assessment Summary: pt s/p repeat ppd2. Doing well, desires discharge today, baby will stay in NICU for bili lights. No concerns, denies s/s of pre-e, will present to the office on Sunday for BP check. RTC/[facility] earlier prn. - Additional Information Resuscitation Status: Full Code Discharge Diet: As Tolerated, Regular Discharge Activity: Activity As Tolerated, Balance Activity w/Rest [facility] - 08/08/19 8:30 am (CALL THE OFFICE FOR ANY QUESTIONS OR CONCERNS) Prescriptions: Oxycodone HCl/Acetaminophen [Percocet 5-325 mg Tablet] 1 tab PO Q4HP PRN #20 tablet PRN Reason: For Pain Scale 3-5 Ibuprofen [Motrin 800 mg Tablet] 800 mg PO Q8HP PRN #30 tablet PRN Reason: For Pain Scale 1-3 Docusate Sodium [Colace 100 mg Capsule] 100 mg PO BID #60 capsule Ferrous Sulfate [Feosol 325 mg Tablet] 325 mg PO BID #60 tablet Home Medications: Vit 93/Iron Fum/Folic [ Formula Tablet] 1 tab PO DAILY 05/07/17 Docusate Sodium [Colace 100 mg Capsule] 100 mg PO BID #60 capsule 08/06/19 Ferrous Sulfate [Feosol 325 mg Tablet] 325 mg PO BID #60 tablet 08/06/19 Ibuprofen [Motrin 800 mg Tablet] 800 mg PO Q8HP PRN #30 tablet 08/06/19 Oxycodone HCl/Acetaminophen [Percocet 5-325 mg Tablet] 1 tab PO Q4HP PRN #20 tablet 08/06/19 Results Laboratory Results: WBC 12.8 10^3/uL (4.0-10.5) H 08/05/19 09:28 RBC 4.28 10^6/uL (3.72-5.28) 08/05/19 09:28 Hgb 10.8 g/dL (12.0-15.5) L D 08/05/19 09:28 Hct 32.8 % (36.0-47.0) L 08/05/19 09:28 MCV 77 fl (80-97) L 08/05/19 09:28 MCH 25.3 pg (27.0-33.4) L 08/05/19 09:28 MCHC 33.1 g/dL (32.0-36.0) 08/05/19 09:28 RDW 14.9 % (11.5-14.0) H 08/05/19 09:28 Plt Count 148 10^3/uL (150-450) L 08/05/19 09:28 Lymph % (Auto) 15.4 % (13-45) 08/04/19 09:57 [place] % (Auto) 7.9 % (3-13) 08/04/19 09:57 Eos % (Auto) 0.7 % (0-6) 08/04/19 09:57 Baso % (Auto) 0.8 % (0-2) 08/04/19 09:57 Absolute Neuts (auto) 6.7 10^3/uL (1.7-8.2) 08/04/19 09:57 Absolute Lymphs (auto) 1.4 10^3/uL (0.5-4.7) 08/04/19 09:57 Absolute Monos (auto) 0.7 10^3/uL (0.1-1.4) 08/04/19 09:57 Absolute Eos (auto) 0.1 10^3/uL (0.0-0.6) 08/04/19 09:57 Absolute Basos (auto) 0.1 10^3/uL (0.0-0.2) 08/04/19 09:57 Seg Neutrophils % 75.2 % (42-78) 08/04/19 09:57 Urine Color YELLOW 08/04/19 09:50 Urine Appearance SLIGHTLY-CLOUDY 08/04/19 09:50 Urine pH 6.0 (5.0-9.0) 08/04/19 09:50 Ur Specific [place] 1.018 08/04/19 09:50 Urine Protein 30 mg/dL (NEGATIVE) H 08/04/19 09:50 Urine Glucose (UA) 50 mg/dL (NEGATIVE) H 08/04/19 09:50 Urine Ketones NEGATIVE mg/dL (NEGATIVE) 08/04/19 09:50 Urine Blood NEGATIVE (NEGATIVE) 08/04/19 09:50 Urine Nitrite NEGATIVE (NEGATIVE) 08/04/19 09:50 Urine Bilirubin NEGATIVE (NEGATIVE) 08/04/19 09:50 Urine Urobilinogen NEGATIVE mg/dL (<2.0) 08/04/19 09:50 Ur Leukocyte Esterase NEGATIVE (NEGATIVE) 08/04/19 09:50 Urine WBC (Auto) 2 /HPF 08/04/19 09:50 Urine RBC (Auto) 1 /HPF 08/04/19 09:50 Urine Bacteria (Auto) TRACE /HPF 08/04/19 09:50 Squamous Epi Cells Auto 7 /HPF 08/04/19 09:50 Urine Mucus (Auto) RARE /LPF 08/04/19 09:50 Urine Ascorbic Acid NEGATIVE (NEGATIVE) 08/04/19 09:50 Urine Opiates Screen NEGATIVE 08/04/19 09:50 Urine Methadone Screen NEGATIVE 08/04/19 09:50 Ur Barbiturates Screen NEGATIVE 08/04/19 09:50 Ur Phencyclidine Scrn NEGATIVE 08/04/19 09:50 Ur Amphetamines Screen NEGATIVE 08/04/19 09:50 U Benzodiazepines Scrn NEGATIVE 08/04/19 09:50 Urine Cocaine Screen NEGATIVE 08/04/19 09:50 U Marijuana (THC) Screen NEGATIVE 08/04/19 09:50 RPR NONREACTIVE (NONREACTIVE) 08/04/19 09:57 Blood Type B POSITIVE 08/04/19 09:57 Antibody Screen NEGATIVE 08/04/19 09:57
[2019-08-06] MEDS ORDERED: INFLUENZA QUAD (6MOS+) 2019-20 VAC 0.5 ML SYR IM ONE (12:56)
== END 2019-08-06 15:56 | disposition home or self-care (01) | DRG 787 ==
LOC: LC 09:39 → LR 09:43 → 2N 14:49
PROVIDERS: ADMIT Obstetrics & Gynecology; ATTEND Obstetrics & Gynecology
PROC: 10D00Z1 Extraction of Products of Conception, Low, Open Approach (ICD-10-PCS; principal; 2019-08-04)
DX: O11.4 Pre-existing hypertension with pre-eclampsia, complicating childbirth (principal); D62 Acute posthemorrhagic anemia; O72.1 Other immediate postpartum hemorrhage; O34.211 Maternal care for low transverse scar from previous cesarean delivery; Z3A.37 37 weeks gestation of pregnancy; Z37.0 Single live birth
CPT/HCPCS: 1961; 36415; 80307; 81001; 85025; 85027; 86592; 86850; 86900; 86901; 90686; 94799; J0131; J0690; J1885; J2250; J2370; J2405; J2590; J3010; J3490; J7060